=== PATIENT | female | born 1980 | race Two or more races ===

== ENCOUNTER 2018-04-11 18:26 | Emergency (ER) | payer BC, MEDICAID, OTHER ==
[~2018-04-11] VITALS: Ht 157.5 cm; Wt 64.8 kg
[2018-04-11 18:40] VITALS: BP 111/68
[2018-04-11] MEDS ORDERED: ALBUTEROL SULFATE 2.5 MG/3 ML NPPB ONE (19:00)
[2018-04-11] MEDS ORDERED: ALBUTEROL SULFATE 2.5 MG/3 ML ONE (19:06)
--- NOTE | 2018-04-11 19:30 | NUR ---
breathing treatment done.
--- NOTE | 2018-04-11 19:31 | NUR ---
x ray resulted. chart up for MD to re-eval.
--- NOTE | 2018-04-11 19:55 | NUR ---
re-evaluation done. patient discharged with prescriptions and instruction. verbalized understanding. spacer provided.
== END 2018-04-11 19:58 | disposition home or self-care (01) ==
LOC: ED 19:55
DX: J20.9 Acute bronchitis, unspecified (principal); B96.89 Other specified bacterial agents as the cause of diseases classified elsewhere
CPT/HCPCS: 71046; 94640; 99283; J7613

== ENCOUNTER 2018-05-15 22:31 | Emergency (ER) | payer SELFPAY ==
[~2018-05-15] VITALS: Ht 157.5 cm; Wt 62.9 kg
[2018-05-15 22:34] VITALS: BP 114/75
[2018-05-15] MEDS ORDERED: DEXAMETHASONE 4 MG TABLET ONE (23:20)
[2018-05-15] MEDS ORDERED: METHOCARBAMOL 750 MG TABLET ONE (23:20)
[2018-05-15] MEDS ORDERED: KETOROLAC 30 MG/1 ML ONE (23:20)
[2018-05-15] MEDS ORDERED: KETOROLAC 30 MG/1 ML IM ONE (23:30)
[2018-05-15] MEDS ORDERED: DEXAMETHASONE 4 MG TABLET PO ONE (23:30)
[2018-05-15] MEDS ORDERED: METHOCARBAMOL 750 MG TABLET PO ONE (23:30)
[2018-05-15] MEDS ORDERED: METHOCARBAMOL 500 MG TABLET PO ONE (23:30)
== END 2018-05-16 00:30 | disposition home or self-care (01) ==
LOC: ED 22:53
DX: S39.012A Strain of muscle, fascia and tendon of lower back, initial encounter (principal); M25.512 Pain in left shoulder; X58.XXXA Exposure to other specified factors, initial encounter; Y93.89 Activity, other specified; Y92.89 Other specified places as the place of occurrence of the external cause; Y99.8 Other external cause status
CPT/HCPCS: 71046; 96372; 99283; J1885

== ENCOUNTER 2018-06-30 14:40 | Emergency (ER) | payer MEDICAID ==
[~2018-06-30] VITALS: Ht 157.5 cm; Wt 62.7 kg
[2018-06-30 14:43] VITALS: BP 130/86
[2018-06-30] MEDS ORDERED: FAMOTIDINE 20 MG TABLET ONE (15:11)
[2018-06-30] MEDS ORDERED: FAMOTIDINE 20 MG TABLET PO ONE (15:30)
== END 2018-06-30 16:33 | disposition home or self-care (01) ==
LOC: ED 16:20
DX: L50.0 Allergic urticaria (principal)
CPT/HCPCS: 99284; J7512; Q0177

== ENCOUNTER 2018-10-13 15:37 | Emergency (ER) | payer OTHER, MEDICAID ==
[2018-10-13 16:39] LABS: MICROSCOPIC NOT IND
[2018-10-13 16:45] LABS: CULTURE INDICATED? NO
--- NOTE | 2018-10-13 17:49 | NUR ---
PT TO ROOM FROM LOBBY
--- NOTE | 2018-10-13 17:57 | NUR ---
pt upright on gurney awake & comfortable, responds approp to staff, NAD, comfort measures provided, at BS, call light within reach.
[2018-10-13 18:07] LABS: BASOPHILS # (AUTO) 0.04 x10^3/uL (0-0.1); BASOPHILS % (AUTO) 1 % (0-1); EOSINOPHILS % (AUTO) 2 % (1-7); LYMPHOCYTES % (AUTO) 26 % (22-44); MD NO; MEAN CORPUSCULAR HGB CONC 33.6 g/dL (32.4-35.8); MEAN CORPUSCULAR VOLUME 89.2 fL (80-100); MEAN PLATELET VOLUME 8.6 fL (7.4-10.4); MONOCYTES # (AUTO) 0.62 x10^3/uL (0.2-0.8); MONOCYTES % (AUTO) 10 % (2-9); NEUTROPHILS # (AUTO) 4.08 x10^3/uL (1.8-6.8); NEUTROPHILS % (AUTO) 62 % (42-75); PLATELET COUNT 251 x10^3/uL (130-400); RED BLOOD COUNT 4.75 x10^6/uL (3.82-5.3); RED CELL DISTRIBUTION WIDTH 14.4 % (9.6-15.2)
[2018-10-13 18:16] LABS: ALANINE AMINOTRANSFERASE 34 U/L (12-78); ALBUMIN 3.9 g/dL (3.4-5.0); ANION GAP 8 mmol/L (5-15); CALCIUM 9.2 mg/dL (8.5-10.1); CHLORIDE 108 mmol/L (98-107); CREATININE 0.85 mg/dL (0.55-1.02)
[2018-10-13 18:21] LABS: ALKALINE PHOSPHATASE 97 U/L (45-117); BILIRUBIN,TOTAL 0.3 mg/dL (0.2-1.0); TOTAL PROTEIN 8.4 g/dL (6.4-8.2)
[2018-10-13] MEDS ORDERED: ACETAMINOPHEN 500 MG TABLET ONE (18:27)
[2018-10-13] MEDS ORDERED: ACETAMINOPHEN 500 MG TABLET PO ONE (18:30)
--- NOTE | 2018-10-13 18:59 | NUR ---
report given to Dasia
--- NOTE | 2018-10-13 19:22 | NUR ---
PT RESTING ON TIN, NAD, FAMILY AT BEDSIDE, MONITORS IN PLACE, CALL LIGHT WITHIN REACH. AWAITING CT
--- NOTE | 2018-10-13 20:19 | NUR ---
PT TO CT
[2018-10-13] MEDS ORDERED: OMNIPAQUE 350 MG/ML, 100ML BOTTLE ONE (20:36)
[2018-10-13 21:33] VITALS: BP 107/77
== END 2018-10-13 21:45 | disposition home or self-care (01) ==
LOC: ED 21:26
DX: R10.11 Right upper quadrant pain (principal); R10.13 Epigastric pain; R35.8 Other polyuria; E78.00 Pure hypercholesterolemia, unspecified; Z90.49 Acquired absence of other specified parts of digestive tract; Z90.710 Acquired absence of both cervix and uterus; Z98.890 Other specified postprocedural states
CPT/HCPCS: 36415; 74177; 80053; 81003; 84703; 85025; 99284; Q9967

== ENCOUNTER 2018-10-25 17:23 | Emergency (ER) | payer MEDICAID, OTHER ==
[~2018-10-25] VITALS: Ht 157.5 cm; Wt 64.0 kg
[2018-10-25 18:31] LABS: MICROSCOPIC NOT IND
[2018-10-25 18:34] LABS: CULTURE INDICATED? NO
[2018-10-25 18:36] LABS: BASOPHILS # (AUTO) 0.03 x10^3/uL (0-0.1); BASOPHILS % (AUTO) 1 % (0-1); EOSINOPHILS # (AUTO) 0.06 x10^3/uL (0-0.4); EOSINOPHILS % (AUTO) 1 % (1-7); LYMPHOCYTES # (AUTO) 1.38 x10^3/uL (1-3.4); LYMPHOCYTES % (AUTO) 24 % (22-44); MD NO; MEAN CORPUSCULAR HEMOGLOBIN 29.9 pg (27.0-34.8); MEAN CORPUSCULAR HGB CONC 33.5 g/dL (32.4-35.8); MEAN CORPUSCULAR VOLUME 89.4 fL (80-100); MEAN PLATELET VOLUME 8.6 fL (7.4-10.4); MONOCYTES # (AUTO) 0.42 x10^3/uL (0.2-0.8); MONOCYTES % (AUTO) 7 % (2-9); NEUTROPHILS # (AUTO) 3.93 x10^3/uL (1.8-6.8); NEUTROPHILS % (AUTO) 68 % (42-75); PLATELET COUNT 281 x10^3/uL (130-400); RED CELL DISTRIBUTION WIDTH 14.4 % (9.6-15.2)
--- NOTE | 2018-10-25 18:42 | NUR ---
BACKEND TESTER: PT TO ROOM FROM LOBBY
[2018-10-25 18:46] LABS: ANION GAP 7 mmol/L (5-15); CALCIUM 9.3 mg/dL (8.5-10.1); CHLORIDE 107 mmol/L (98-107)
--- NOTE | 2018-10-25 18:49 | NUR ---
RUQ, RIGHT SIDE AND RIGHT BACK PAIN FOR SEVERAL WEEKS. NAUSEA, FELT LIKE GOING TO PASS OUT AT WORK TODAY
[2018-10-25 18:51] LABS: ALANINE AMINOTRANSFERASE 30 U/L (12-78); ALKALINE PHOSPHATASE 89 U/L (45-117); BILIRUBIN,TOTAL 0.6 mg/dL (0.2-1.0); CREATININE 0.91 mg/dL (0.55-1.02); TOTAL PROTEIN 8.7 g/dL (6.4-8.2)
--- NOTE | 2018-10-25 18:57 | NUR ---
REPORT RECIEVED FROM PRINCE CHO
[2018-10-25 19:14] VITALS: BP 101/64
--- NOTE | 2018-10-25 19:16 | NUR ---
PT RESTING ON GURNEY. FAMILY AT BEDSIDE. LABS/UA ARE BACK AND PT PLACED UP FOR RECHECK BY EPIFANIO THOMAS
[2018-10-25] MEDS ORDERED: MAALOX/HYOSCYAMINE/LIDOCAINE 45 ML BTL ONE (19:41)
[2018-10-25] MEDS ORDERED: MAALOX/HYOSCYAMINE/LIDOCAINE 45 ML BTL PO ONE (20:00)
== END 2018-10-25 19:54 | disposition home or self-care (01) ==
LOC: ED 19:51
DX: K29.00 Acute gastritis without bleeding (principal); I10 Essential (primary) hypertension; E78.5 Hyperlipidemia, unspecified; E78.00 Pure hypercholesterolemia, unspecified; Z90.49 Acquired absence of other specified parts of digestive tract; Z90.710 Acquired absence of both cervix and uterus
CPT/HCPCS: 36415; 80053; 81003; 84703; 85025; 99283

== ENCOUNTER 2019-03-28 19:59 | Emergency (ER) | payer MEDICAID, OTHER ==
[~2019-03-28] VITALS: Ht 157.5 cm; Wt 70.8 kg
[2019-03-28 20:04] VITALS: BP 111/77
--- NOTE | 2019-03-28 20:10 | NUR ---
PT TO LOBBY, WAIT TIME EXPLAINED.
--- NOTE | 2019-03-28 20:18 | NUR ---
PT HERE WITH C/O COUGH X 1 YEAR, STATES RECENTLY GOT WORSE. PT STATES "WHEN I COUGH TOO MUCH MY THROAT AND CHEST HURT AND I TASTE BLOOD."
--- NOTE | 2019-03-28 20:19 | NUR ---
PT TO XRAY.
--- NOTE | 2019-03-28 20:23 | NUR ---
PT BACK FROM XRAY.
--- NOTE | 2019-03-28 20:44 | NUR ---
MEDICATION ORDERED FROM PHARMACY.
--- NOTE | 2019-03-28 20:52 | NUR ---
PT MEDICATED PER ORDER.
[2019-03-28] MEDS ORDERED: PROMETHAZINE/COD. 10MG/6.25MG/5 ML ORAL SOL PO ONE (21:00)
--- NOTE | 2019-03-28 21:02 | NUR ---
REPORT GIVEN TO PRINCE YOUSIF. CARE TRANSFERRED.
== END 2019-03-28 21:35 | disposition home or self-care (01) ==
LOC: ED 20:40
DX: J18.1 Lobar pneumonia, unspecified organism (principal); I10 Essential (primary) hypertension; E78.5 Hyperlipidemia, unspecified; E78.00 Pure hypercholesterolemia, unspecified
CPT/HCPCS: 71046; 93005; 99283

== ENCOUNTER 2019-05-18 19:51 | Emergency (ER) | payer SELFPAY ==
[~2019-05-18] VITALS: Ht 157.5 cm; Wt 69.8 kg
[2019-05-18 20:44] LABS: ALANINE AMINOTRANSFERASE 33 U/L (12-78); ALBUMIN 3.9 g/dL (3.4-5.0); ANION GAP 6 mmol/L (5-15); CALCIUM 9.1 mg/dL (8.5-10.1); CHLORIDE 108 mmol/L (98-107); CREATININE 0.84 mg/dL (0.55-1.02)
[2019-05-18 20:46] LABS: ALKALINE PHOSPHATASE 113 U/L (45-117); BILIRUBIN,TOTAL 0.5 mg/dL (0.2-1.0)
[2019-05-18 20:49] LABS: MEAN CORPUSCULAR HEMOGLOBIN 28.8 pg (27.0-34.8); MEAN CORPUSCULAR VOLUME 87.3 fL (80-100); MEAN PLATELET VOLUME 8.9 fL (7.4-10.4); PLATELET COUNT 240 x10^3/uL (130-400); RED BLOOD COUNT 5.16 x10^6/uL (3.82-5.3); RED CELL DISTRIBUTION WIDTH 14.4 % (9.6-15.2)
[2019-05-18 21:11] LABS: BASOPHILS # (AUTO) 0.02 x10^3/uL (0-0.1); BASOPHILS % (AUTO) 1 % (0-1); EOSINOPHILS # (AUTO) 0.05 x10^3/uL (0-0.4); EOSINOPHILS % (AUTO) 1 % (1-7); LYMPHOCYTES # (AUTO) 1.21 x10^3/uL (1-3.4); LYMPHOCYTES % (AUTO) 23 % (22-44); MD NO; MONOCYTES # (AUTO) 0.56 x10^3/uL (0.2-0.8); MONOCYTES % (AUTO) 11 % (2-9); NEUTROPHILS # (AUTO) 3.39 x10^3/uL (1.8-6.8); NEUTROPHILS % (AUTO) 65 % (42-75)
[2019-05-18] MEDS ORDERED: ONDANSETRON ODT 4 MG ONE (22:21)
[2019-05-18] MEDS ORDERED: BENZONATATE 100 MG CAPSULE ONE (22:22)
[2019-05-18] MEDS ORDERED: BENZONATATE 100 MG CAPSULE PO ONE (22:30)
[2019-05-18] MEDS ORDERED: ONDANSETRON ODT 4 MG PO ONE (22:30)
[2019-05-18 23:02] VITALS: BP 114/81
== END 2019-05-18 23:04 | disposition home or self-care (01) ==
LOC: ED 22:21
DX: R05 Cough (principal); R11.2 Nausea with vomiting, unspecified; R19.7 Diarrhea, unspecified; R94.31 Abnormal electrocardiogram [ECG] [EKG]; I10 Essential (primary) hypertension; E78.5 Hyperlipidemia, unspecified; E78.00 Pure hypercholesterolemia, unspecified; Z90.49 Acquired absence of other specified parts of digestive tract; Z90.710 Acquired absence of both cervix and uterus
CPT/HCPCS: 36415; 71045; 80053; 85025; 93005; 99284; Q0162

== ENCOUNTER 2019-07-01 23:18 | Emergency (ER) | payer OTHER ==
[~2019-07-01] VITALS: Ht 157.5 cm; Wt 79.0 kg
[2019-07-01 23:24] VITALS: BP 106/73
[2019-07-01] MEDS ORDERED: IBUPROFEN 600 MG TABLET ONE (23:44)
--- NOTE | 2019-07-01 23:56 | NUR ---
Pt alert and resting on gurney. Pt reports pain to all of left foot. Pt denies trauma, falls. CMS intact. Ice pack applied. Motrin given. Warm blanket provided. Pt aware of wait for xray results and denies needs at this time.
[2019-07-02] MEDS ORDERED: IBUPROFEN 600 MG TABLET PO ONE
--- NOTE | 2019-07-02 00:23 | NUR ---
Report given to PRINCE Paez
--- NOTE | 2019-07-02 00:49 | NUR ---
ALL RESULTS BACK AT THIS TIME CHART UP FOR RECHECK
== END 2019-07-02 01:59 | disposition home or self-care (01) ==
LOC: ED 07-02 00:36
DX: G89.11 Acute pain due to trauma (principal); M79.672 Pain in left foot; E78.00 Pure hypercholesterolemia, unspecified; I10 Essential (primary) hypertension; E78.5 Hyperlipidemia, unspecified; Z90.49 Acquired absence of other specified parts of digestive tract; Z90.710 Acquired absence of both cervix and uterus; X50.1XXA Overexertion from prolonged static or awkward postures, initial encounter; Y93.89 Activity, other specified; Y92.69 Other specified industrial and construction area as the place of occurrence of the external cause; Y99.8 Other external cause status
CPT/HCPCS: 99284

== ENCOUNTER 2019-10-26 09:30 | Emergency (ER) | payer OTHER ==
[~2019-10-26] VITALS: Ht 157.5 cm; Wt 75.5 kg
[2019-10-26] MEDS ORDERED: SODIUM CHLORIDE 0.9% 1,000ML IVBOLUS ONE (10:00)
[2019-10-26] MEDS ORDERED: ONDANSETRON 2MG/ML, 2ML IVPush ONE (10:00)
[2019-10-26] MEDS ORDERED: ONDANSETRON 2MG/ML, 2ML ONE (10:04)
[2019-10-26] MEDS ORDERED: MORPHINE SULFATE 4 MG/ML, 1ML ONE ×2 (10:04→10:57)
[2019-10-26] MEDS: MORPHINE SULFATE 4 MG/ML, 1ML IVPush PRN ×2 (10:13→11:03)
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
[2019-10-26 10:15] LABS: MICROSCOPIC AUTO
[2019-10-26 10:31] LABS: BASOPHILS # (AUTO) 0.03 x10^3/uL (0-0.1); BASOPHILS % (AUTO) 1 % (0-1); EOSINOPHILS # (AUTO) 0.07 x10^3/uL (0-0.4); EOSINOPHILS % (AUTO) 1 % (1-7); LYMPHOCYTES # (AUTO) 0.85 x10^3/uL (1-3.4); LYMPHOCYTES % (AUTO) 16 % (22-44); MD NO; MEAN CORPUSCULAR HGB CONC 33.5 g/dL (32.4-35.8); MEAN CORPUSCULAR VOLUME 86.4 fL (80-100); MEAN PLATELET VOLUME 8.8 fL (7.4-10.4); MONOCYTES # (AUTO) 0.43 x10^3/uL (0.2-0.8); MONOCYTES % (AUTO) 8 % (2-9); NEUTROPHILS # (AUTO) 3.83 x10^3/uL (1.8-6.8); NEUTROPHILS % (AUTO) 74 % (42-75); PLATELET COUNT 241 x10^3/uL (130-400); RED BLOOD COUNT 4.86 x10^6/uL (3.82-5.3); RED CELL DISTRIBUTION WIDTH 14.3 % (9.6-15.2)
[2019-10-26] MEDS ORDERED: KETOROLAC 30 MG/1 ML ONE (10:35)
[2019-10-26 10:39] LABS: ALANINE AMINOTRANSFERASE 54 U/L (12-78); ALBUMIN 3.8 g/dL (3.4-5.0); ANION GAP 8 mmol/L (5-15); CALCIUM 9.3 mg/dL (8.5-10.1); CHLORIDE 111 mmol/L (98-107)
--- NOTE | 2019-10-26 10:39 | NUR ---
to ct scan
[2019-10-26 10:41] LABS: ALKALINE PHOSPHATASE 102 U/L (45-117); BILIRUBIN,TOTAL 0.6 mg/dL (0.2-1.0); CREATININE 0.87 mg/dL (0.55-1.02); TOTAL PROTEIN 8.5 g/dL (6.4-8.2)
[2019-10-26] MEDS ORDERED: PROCHLORPERAZINE 5 MG/ML, 2ML ONE (10:59)
[2019-10-26] MEDS ORDERED: KETOROLAC 30 MG/1 ML IVPush ONE (11:00)
[2019-10-26] MEDS ORDERED: METOCLOPRAMIDE 5 MG/ML, 2ML IVPush ONE (11:00)
--- NOTE | 2019-10-26 11:04 | NUR ---
PAIN RETURNED RAPIDLY DESPITE EARLIER MEDICATION-PROVIDER ORT [id number]
[2019-10-26] MEDS ORDERED: METOCLOPRAMIDE 5 MG/ML, 2ML ONE (11:06)
[2019-10-26] MEDS ORDERED: CEFTRIAXONE PMX 1GM/50ML 50 ML ONE (11:25)
[2019-10-26] MEDS ORDERED: CEFTRIAXONE PMX 1GM/50ML 50 ML IV ONE (11:30)
[2019-10-26 11:31] VITALS: BP 95/57
== END 2019-10-26 11:57 | disposition home or self-care (01) ==
LOC: ED 11:45
DX: N30.00 Acute cystitis without hematuria (principal); R10.31 Right lower quadrant pain; R30.0 Dysuria; E78.5 Hyperlipidemia, unspecified; I10 Essential (primary) hypertension; Z90.49 Acquired absence of other specified parts of digestive tract; Z90.710 Acquired absence of both cervix and uterus
CPT/HCPCS: 36415; 74176; 80053; 81001; 83690; 85025; 87086; 96365; 96375; 96376; 99284; J0696; J1885; J2270; J2405; J2765; J7030

== ENCOUNTER 2019-10-31 07:55 | Emergency (ER) | payer OTHER ==
[~2019-10-31] VITALS: Ht 157.5 cm; Wt 76.0 kg
[2019-10-31 08:53] LABS: BASOPHILS # (AUTO) 0.04 x10^3/uL (0-0.1); BASOPHILS % (AUTO) 1 % (0-1); EOSINOPHILS # (AUTO) 0.11 x10^3/uL (0-0.4); EOSINOPHILS % (AUTO) 2 % (1-7); LYMPHOCYTES # (AUTO) 1.18 x10^3/uL (1-3.4); LYMPHOCYTES % (AUTO) 20 % (22-44); MD NO; MEAN CORPUSCULAR HEMOGLOBIN 28.3 pg (27.0-34.8); MEAN CORPUSCULAR HGB CONC 32.3 g/dL (32.4-35.8); MEAN CORPUSCULAR VOLUME 87.7 fL (80-100); MEAN PLATELET VOLUME 8.6 fL (7.4-10.4); MONOCYTES # (AUTO) 0.54 x10^3/uL (0.2-0.8); MONOCYTES % (AUTO) 9 % (2-9); NEUTROPHILS # (AUTO) 3.97 x10^3/uL (1.8-6.8); NEUTROPHILS % (AUTO) 68 % (42-75); PLATELET COUNT 263 x10^3/uL (130-400); RED BLOOD COUNT 5.24 x10^6/uL (3.82-5.3); RED CELL DISTRIBUTION WIDTH 14.8 % (9.6-15.2)
[2019-10-31 09:07] LABS: MICROSCOPIC NOT IND
[2019-10-31 09:08] LABS: ALBUMIN 3.9 g/dL (3.4-5.0); ANION GAP 4 mmol/L (5-15); CALCIUM 9.5 mg/dL (8.5-10.1); CHLORIDE 110 mmol/L (98-107)
[2019-10-31 09:14] LABS: ALANINE AMINOTRANSFERASE 89 U/L (12-78); ALKALINE PHOSPHATASE 110 U/L (45-117); BILIRUBIN,TOTAL 0.5 mg/dL (0.2-1.0); CREATININE 1.02 mg/dL (0.55-1.02); TOTAL PROTEIN 8.7 g/dL (6.4-8.2)
--- NOTE | 2019-10-31 09:44 | NUR ---
PT AMBULATED FROM THE LOBBY TO ROOM 23 W/ A STEADY GAIT AT THIS TIME.
--- NOTE | 2019-10-31 09:59 | NUR ---
THIS IS A 39 YO F W/ C/O ABD PAIN/DISTENTION, NAUSEA AND LOSS OF APPETITE X5 DAYS. PT DENIES VOMITING/PAIN W/ URINATION. PT CURRENTLY TAKING OMNICEF FOR UTI. PT RESTING ON GURNEY W/ CALL LIGHT IN REACH AND FAMILY AT BEDSIDE, RESP EVEN AND UNLABORED, LARA SAMUEL. CARLINE JARAMILLO AT BEDSIDE FOR ED EVAL.
--- NOTE | 2019-10-31 10:32 | NUR ---
US AT BEDSIDE.
--- NOTE | 2019-10-31 10:50 | NUR ---
LARA SAMUEL. AWAITING US RESULTS.
--- NOTE | 2019-10-31 11:08 | NUR ---
ALL TESTS RESULTED. PT IS UP FOR RECHECK AT THIS TIME.
--- NOTE | 2019-10-31 11:21 | NUR ---
PT AMBULATED TO THE BR W/ A STEADY GAIT.
[2019-10-31] MEDS ORDERED: PROMETHAZINE 25 MG/ML, 1ML ONE (11:47)
--- NOTE | 2019-10-31 11:51 | NUR ---
PT MEDICATED PER EMAR. VSS, NADN.
[2019-10-31] MEDS ORDERED: PROMETHAZINE 25 MG/ML, 1ML IM ONE (12:00)
--- NOTE | 2019-10-31 12:20 | NUR ---
AT BEDSIDE TO UPDATE PT ON POC FOR CT.
--- NOTE | 2019-10-31 12:34 | NUR ---
PT TO CT.
[2019-10-31 13:03] VITALS: BP 105/62
== END 2019-10-31 13:24 | disposition home or self-care (01) ==
LOC: ED 08:04
DX: R10.11 Right upper quadrant pain (principal); R11.0 Nausea; E78.5 Hyperlipidemia, unspecified; E78.00 Pure hypercholesterolemia, unspecified; I10 Essential (primary) hypertension; Z90.49 Acquired absence of other specified parts of digestive tract; Z90.710 Acquired absence of both cervix and uterus
CPT/HCPCS: 36415; 74176; 76700; 80053; 81003; 83690; 84703; 85025; 96372; 99285; J2550

== ENCOUNTER 2020-02-07 10:16 | Emergency (ER) | payer OTHER ==
[~2020-02-07] VITALS: Ht 157.5 cm; Wt 77.3 kg
[2020-02-07 11:33] LABS: RAPID INFLUENZA A Negative (Negative); RAPID INFLUENZA B Negative (Negative)
--- NOTE | 2020-02-07 11:39 | NUR ---
report from giovanny galvin. lab at bedside. vss. call elizabeth. arlen. as
[2020-02-07 11:51] LABS: BASOPHILS % (AUTO) 1 % (0-1); EOSINOPHILS % (AUTO) 2 % (1-7); LYMPHOCYTES % (AUTO) 21 % (22-44); MD NO; MEAN CORPUSCULAR HEMOGLOBIN 28.6 pg (27.0-34.8); MEAN CORPUSCULAR HGB CONC 32.8 g/dL (32.4-35.8); MEAN PLATELET VOLUME 8.3 fL (7.4-10.4); MONOCYTES % (AUTO) 8 % (2-9); NEUTROPHILS % (AUTO) 69 % (42-75); PLATELET COUNT 231 x10^3/uL (130-400); RED BLOOD COUNT 5.13 x10^6/uL (3.82-5.3); RED CELL DISTRIBUTION WIDTH 14.7 % (9.6-15.2)
[2020-02-07 12:14] LABS: ALANINE AMINOTRANSFERASE 87 U/L (12-78); ALBUMIN 3.7 g/dL (3.4-5.0); ANION GAP 6 mmol/L (5-15); CALCIUM 9.3 mg/dL (8.5-10.1); CHLORIDE 109 mmol/L (98-107)
[2020-02-07 12:17] LABS: ALKALINE PHOSPHATASE 118 U/L (45-117); BILIRUBIN,TOTAL 0.5 mg/dL (0.2-1.0); CREATININE 0.87 mg/dL (0.55-1.02); TOTAL PROTEIN 8.3 g/dL (6.4-8.2)
[2020-02-07 12:57] VITALS: BP 132/84
== END 2020-02-07 12:59 | disposition home or self-care (01) ==
LOC: ED 10:47
DX: B34.9 Viral infection, unspecified (principal); Z20.828 Contact with and (suspected) exposure to other viral communicable diseases; R74.01 Elevation of levels of liver transaminase levels; R07.89 Other chest pain; R05 Cough; R51.9 Headache, unspecified; R78.71 Abnormal lead level in blood; I10 Essential (primary) hypertension; E78.5 Hyperlipidemia, unspecified; Z90.710 Acquired absence of both cervix and uterus; Z90.49 Acquired absence of other specified parts of digestive tract
CPT/HCPCS: 36415; 71045; 80053; 85025; 87400; 87635; 93005; 99285

== ENCOUNTER 2020-03-11 17:01 | Emergency (ER) | payer OTHER ==
[~2020-03-11] VITALS: Ht 162.6 cm; Wt 77.4 kg
[2020-03-11 17:57] VITALS: BP 118/81
[2020-03-11] MEDS ORDERED: IBUPROFEN 600 MG TABLET ONE (18:02)
--- NOTE | 2020-03-11 18:13 | NUR ---
Patient/Caregiver given discharge instructions and they have confirmed that they understand the instructions. Patient ambulatory with steady gait.
[2020-03-11] MEDS ORDERED: IBUPROFEN 200 MG TABLET PO ONE (18:30)
== END 2020-03-11 19:39 | disposition home or self-care (01) ==
LOC: ED 18:14
DX: H66.001 Acute suppurative otitis media without spontaneous rupture of ear drum, right ear (principal); I10 Essential (primary) hypertension
CPT/HCPCS: 99283

== ENCOUNTER 2020-05-10 14:19 | Emergency (ER) | payer SELFPAY ==
[~2020-05-10] VITALS: Ht 157.5 cm; Wt 76.6 kg
[2020-05-10 14:22] VITALS: BP 110/79
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
[2020-05-10] MEDS ORDERED: IBUPROFEN 600 MG TABLET ONE (14:50)
[2020-05-10] MEDS ORDERED: IBUPROFEN 200 MG TABLET PO ONE (15:00)
== END 2020-05-10 15:53 | disposition home or self-care (01) ==
LOC: ED 14:41
DX: M25.571 Pain in right ankle and joints of right foot (principal); M25.572 Pain in left ankle and joints of left foot; M79.661 Pain in right lower leg; M79.662 Pain in left lower leg; I10 Essential (primary) hypertension
CPT/HCPCS: 99284

== ENCOUNTER 2020-07-18 21:00 | Emergency (ER) | payer SELFPAY ==
[~2020-07-18] VITALS: Ht 157.5 cm; Wt 72.4 kg
[2020-07-18 21:02] VITALS: BP 122/78
--- NOTE | 2020-07-18 21:18 | NUR ---
Pt concerned for sinus infection. Pt with right sided facial pain. Pt with no further complaints. Will monitor.
--- NOTE | 2020-07-18 21:39 | NUR ---
Patient/Caregiver given discharge instructions and they have confirmed that they understand the instructions. Patient ambulatory with steady gait.
== END 2020-07-18 21:51 | disposition home or self-care (01) ==
LOC: ED 21:30
DX: J01.10 Acute frontal sinusitis, unspecified (principal); J01.00 Acute maxillary sinusitis, unspecified; J01.20 Acute ethmoidal sinusitis, unspecified; I10 Essential (primary) hypertension; E78.5 Hyperlipidemia, unspecified
CPT/HCPCS: 99282

== ENCOUNTER 2020-07-23 21:37 | Emergency (ER) | payer OTHER ==
[~2020-07-23] VITALS: Ht 157.5 cm; Wt 71.2 kg
--- NOTE | 2020-07-23 23:38 | NUR ---
PT. TO ROOM FROM LOBBY AT THIS TIME. AMBULATORY WITH STEADY GAIT.
--- NOTE | 2020-07-24 00:09 | NUR ---
DR. WILEY IN TO EVAL PT. AND DISCUSS POC. I&D KIT AT BS FOR PROVIDER.
[2020-07-24 00:38] VITALS: BP 141/92
[2020-07-24] MEDS ORDERED: AMOXICILLIN/CLAV 875-125MG TABLET PO ONE (01:00)
[2020-07-24] MEDS ORDERED: AMOXICILLIN/CLAV 875-125MG TABLET ONE (01:00)
--- NOTE | 2020-07-24 01:07 | NUR ---
BREAK RN= PT MEDICATED PER JUN, PT DISCHARGED
== END 2020-07-24 01:09 | disposition home or self-care (01) ==
LOC: ED 07-24 00:55
DX: K04.7 Periapical abscess without sinus (principal); I10 Essential (primary) hypertension; E78.5 Hyperlipidemia, unspecified; E78.00 Pure hypercholesterolemia, unspecified; Z90.49 Acquired absence of other specified parts of digestive tract
CPT/HCPCS: 41800; 99284

== ENCOUNTER 2020-11-22 17:07 | Emergency (ER) | payer OTHER | END 2020-11-22 17:45 | LOC: ED 17:30 | DX: R68.89 Other general symptoms and signs (principal); Z53.21 Procedure and treatment not carried out due to patient leaving prior to being seen by health care provider ==

== ENCOUNTER 2020-11-25 08:16 | Emergency (ER) | payer BC, OTHER ==
[~2020-11-25] VITALS: Ht 157.5 cm; Wt 64.4 kg
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
[2020-11-25] MEDS ORDERED: OMNIPAQUE 350 MG/ML, 100ML BOTTLE ONE (09:56)
[2020-11-25] MEDS ORDERED: SODIUM CHLORIDE FLUSH 10ML SYR IVF ONE (10:00)
[2020-11-25 10:29] LABS: BASOPHILS % (AUTO) 1 % (0-1); EOSINOPHILS % (AUTO) 1 % (1-7); LYMPHOCYTES % (AUTO) 10 % (22-44); MEAN CORPUSCULAR HEMOGLOBIN 29.5 pg (27.0-34.8); MEAN CORPUSCULAR HGB CONC 33.9 g/dL (32.4-35.8); MEAN PLATELET VOLUME 8.8 fL (7.4-10.4); MICROSCOPIC NOT IND; MONOCYTES % (AUTO) 9 % (2-9); NEUTROPHILS % (AUTO) 80 % (42-75); PLATELET COUNT 232 x10^3/uL (130-400); RED BLOOD COUNT 5.33 x10^6/uL (3.82-5.3); RED CELL DISTRIBUTION WIDTH 14.3 % (9.6-15.2)
[2020-11-25 10:42] LABS: ALANINE AMINOTRANSFERASE 26 U/L (12-78); ALBUMIN 3.9 g/dL (3.4-5.0); ANION GAP 9 mmol/L (5-15); CALCIUM 9.5 mg/dL (8.5-10.1); CHLORIDE 107 mmol/L (98-107)
[2020-11-25 10:47] LABS: ALKALINE PHOSPHATASE 118 U/L (45-117); BILIRUBIN,TOTAL 0.5 mg/dL (0.2-1.0); CREATININE 0.75 mg/dL (0.55-1.02); TOTAL PROTEIN 8.9 g/dL (6.4-8.2)
[2020-11-25 11:12] VITALS: BP 116/80
--- NOTE | 2020-11-25 11:13 | NUR ---
PT RESTING IN [facility]. GUEVARA.
== END 2020-11-25 12:41 | disposition home or self-care (01) ==
LOC: ED 10:01
DX: R10.11 Right upper quadrant pain (principal); R10.31 Right lower quadrant pain; I10 Essential (primary) hypertension; E78.5 Hyperlipidemia, unspecified; E78.00 Pure hypercholesterolemia, unspecified; Z90.49 Acquired absence of other specified parts of digestive tract
CPT/HCPCS: 36415; 74177; 80053; 81003; 83690; 84703; 85025; 99285; Q9967